=== PATIENT | female | born 1960 | race Two or more races ===

== ENCOUNTER 2024-05-07 09:14 | Emergency (ER) | payer BC ==
[~2024-05-07] VITALS: Ht 167.6 cm; Wt 73.0 kg
[2024-05-07] MEDS ORDERED: METHYLPREDNISOLONE SOD SUCC 40 MG VIAL IM ONE (10:30)
[2024-05-07] MEDS ORDERED: BENZONATATE 100 MG CAPSULE PO ONE (10:30)
[2024-05-07] MEDS ORDERED: LEVALBUTEROL HCL 0.63 MG/3 ML SOLUTION IH ONE (10:30)
[2024-05-07 10:50] LABS: ABG PH 7.466 (7.35-7.45); ABG PO2 72.8 mmHg (80-100); ABG pCO2 35.7 mmHg (35-45); BASE EXCESS 1.8 mmol/l; BICARBONATE 25.5 mmol/l (23-25); SaO2 95.5 %; Tco2 26.3 mmol/l; allen test SATISFACTORY; o2 21 %; puncture site RADIAL LEFT
[2024-05-07 11:31] LABS: HEMATOCRIT 35.7 % (36.0-45.00); MEAN CELL VOLUME 86.2 fL (80.00-100.00); MEAN CORPUSCULAR HGB CONC 33.7 g/dl (32.0-36.0); PLATELET COUNT 268 K/uL (150-450); RED BLOOD COUNT 4.14 M/uL (4.00-6.00)
[2024-05-07] MEDS ORDERED: OSEL75CA PO (12:37)
== END 2024-05-07 13:02 | disposition home or self-care (01) ==
LOC: ER 09:16
PROVIDERS: General Practice
DX: J45.901 Unspecified asthma with (acute) exacerbation (principal); Z88.0 Allergy status to penicillin; J10.1 Influenza due to other identified influenza virus with other respiratory manifestations; Z20.822 Contact with and (suspected) exposure to COVID-19